=== PATIENT | female | born 2000 | race Caucasian/White ===

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

== ENCOUNTER 2021-02-15 10:03 | Inpatient (IN) | payer OTHER ==
[2021-02-15 10:44] LABS: Urine Blood Trace-intact (Negative); Urine Glucose Negative (Negative); Urine Protein Trace (Negative); Urine Specific Gravity >=1.030 (1.005-1.030)
[2021-02-15 10:56] LABS: Absolute Lymphocytes (CBC) 2.6 K/uL (0.7-4.9); Basophils % 0.5 % (0-1.3); Hematocrit 36.4 % (36.0-45.0); Lymphocytes % 20.6 % (15.3-44.8); MPV 8.4 fL (7.6-11.3); RBC Red Blood Cell Count 3.95 M/uL (3.86-4.86)
[2021-02-15 11:13] LABS: ALT/SGPT 29 U/L (12-78); AST/SGOT 20 U/L (15-37); Albumin 3.7 g/dL (3.4-5.0); Alkaline Phosphatase 69 U/L (45-117); BUN Blood Urea Nitrogen 13 mg/dL (7-18); Bicarbonate 25 mmol/L (21-32); Bilirubin Direct 0.1 mg/dL (0-0.2); Bilirubin Total 0.4 mg/dL (0.2-1.0); Glucose Level 92 mg/dL (74-106); Lipase 72 U/L (73-393); Potassium 3.9 mmol/L (3.5-5.1); Protein, Total 8.6 g/dL (6.4-8.2); Sodium Level 138 mmol/L (136-145)
--- NOTE | 2021-02-15 11:37 | RAD REPORT ---
EXAM DESCRIPTION: CTAbdomen Pelvis W Contrast - 02/15/2021 11:06 am CLINICAL HISTORY: Abdominal pain. ABD PAIN COMPARISON: [facility] Protocol dated 12/22/2019 TECHNIQUE: Biphasic CT imaging of the abdomen and pelvis was performed with 100 ml non-ionic IV cont rast. All CT scans are performed using dose optimization technique as appropriate and may include automated exposure control or mA/KV adjustment according to patient size. FINDINGS: The lung bases are clear. The liver, spleen, pancreas, adrenal glands and kidneys are within normal limits. No bowel obstruction or free intraperitoneal air is visible. Mild inflammatory changes seen the left and right pericolic gutter surrounding colon. There is modera te complex fluid in the pelvis anterior and posterior to the uterus. The appendix is noted in the rig ht lower quadrant does appear mildly thickened measuring up to 7-8 mm. Multiple prominent lymph nodes in the small bowel mesenteric. No suspicious bony findings. IMPRESSION: Findings favor inflammatory pelvic process such as pelvic inflammatory disease. A less l ikely possibility could be a perforated appendicitis although the majority of the appendix is visuali zed and appears only mildly thickened. Correlation with physical exam findings or pelvic inflammatory disease is recommended.
[2021-02-15 11:38] LABS: Urine Bacteria 20-50 /HPF (<20)
[2021-02-15 11:39] LABS: Urine Mucus S /HPF (NONE SEEN)
--- NOTE | 2021-02-15 13:24 | RAD REPORT ---
EXAM DESCRIPTION: US - Pelvis Complete - 02/15/2021 1:16 pm CLINICAL HISTORY: ABD PAIN Pelvic pain. COMPARISON: CHEST PA AND LAT 2 VIEW dated 07/07/2012; Abdomen Pelvis W Contrast dated 02/15/2021 FINDINGS: The uterus is normal in size, shape and echotexture. The uterus measures 7.8 x 5.0 x 3.5 c m. The endometrial stripe measures 4 mm, normal. Both ovaries are normal in size, shape and echotexture. The right ovary measures 2.6 x 2.2 cm. The left ovary measures 3.1 x 2.4 cm. Complex fluid is likely present adjacent to the right ovary. Normal Doppler blood flow was demonstrated to both ovaries. Mild free fluid is seen in the pelvis. IMPRESSION: Complex structure is present adjacent to the right ovary. Tubo-ovarian abscess is a poss ibility.Recommend clinical correlation. Mild free fluid is seen in the pelvis.
[2021-02-15] MEDS ORDERED: NA CHLORIDE 0.9% 100 ML ONE (14:24)
[2021-02-15] MEDS ORDERED: PIPERACIL/TAZO 3.375 GM VIAL IV ONE (14:24)
--- NOTE | 2021-02-15 14:30 | ER ---
Nurse's Notes [facility] Name: Dai Tilley Age: 21 yrs Sex: Female : 2000 Arrival Date: 02/15/2021 Time: 10:08 Bed 10 Private MD: Diagnosis: Abdominal pain, unspecified Presentation: 02/15 10:12 Chief complaint: Patient states: Lower abd pain and bloating for 6 days. Some N/V/D, no ll1 fever States she thinks she has ovarian cyst. Coronavirus screen: Vaccine status: Patient reports being unvaccinated. Client denies travel out of the [place] in the last 14 days. At this time, the client does not indicate any symptoms associated with coronavirus-19. Ebola Screen: Patient denies travel to an Ebola-affected area in the 21 days before illness onset. Initial Sepsis Screen: Does the patient meet any 2 criteria? No. Patient's initial sepsis screen is negative. Does the patient have a suspected source of infection? Yes: Acute abdominal pain. Risk Assessment: Do you want to hurt yourself or someone else? Patient reports no desire to harm self or others. Onset of symptoms was February 09, 2021. 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 Flu vaccine is up to date. - Social history:: Smoking status: Patient denies any tobacco usage or history of. Screenin:15 Abuse screen: Denies threats or abuse. Nutritional screening: No deficits noted. tw2 Tuberculosis screening: No symptoms or risk factors identified. Fall Risk None identified. Assessment: 10:30 General: Appears in no apparent distress. comfortable, Behavior is calm, cooperative. vg1 Pain: Complains of pain in right lower quadrant and left lower quadrant Pain currently is 4 out of 10 on a pain scale. Pain began about six days ago. Neuro: Level of Consciousness is awake, alert, obeys commands, Oriented to person, place, time, situation. Cardiovascular: Patient's skin is warm and dry. Respiratory: Airway is patent Respiratory effort is even, unlabored. GI: Bowel sounds present X 4 quads. Abd is soft and non tender X 4 quads. Reports diarrhea, nausea, vomiting. : No signs and/or symptoms were reported regarding the genitourinary system. EENT: No signs and/or symptoms were reported regarding the EENT system. Derm: Skin is intact, is healthy with good turgor. Musculoskeletal: Circulation, motion, and sensation intact. 11:48 Reassessment: Patient appears in no apparent distress at this time. No changes from vg1 previously documented assessment. Patient and/or family updated on plan of care and expected duration. Pain level reassessed. Patient is alert, oriented x 3, equal unlabored respirations, skin warm/dry/pink. 13:36 Reassessment: Patient appears in no apparent distress at this time. No changes from vg1 previously documented assessment. Patient and/or family updated on plan of care and expected duration. Pain level reassessed. Patient is alert, oriented x 3, equal unlabored respirations, skin warm/dry/pink. 14:29 Reassessment: Patient appears in no apparent distress at this time. No changes from vg1 previously documented assessment. Patient and/or family updated on plan of care and expected duration. Pain level reassessed. Patient is alert, oriented x 3, equal unlabored respirations, skin warm/dry/pink. 14:42 Reassessment: Dr Kelly at bedside. vg1 14:57 Reassessment: Jazmyne Obregon ENP at bedside. vg1 15:43 Reassessment: Patient appears in no apparent distress at this time. Patient and/or vg1 family updated on plan of care and expected duration. Pain level reassessed. Patient is alert, oriented x 3, equal unlabored respirations, skin warm/dry/pink. 17:00 Reassessment: Patient appears in no apparent distress at this time. No changes from vg1 previously documented assessment. Patient and/or family updated on plan of care and expected duration. Pain level reassessed. Patient is alert, oriented x 3, equal unlabored respirations, skin warm/dry/pink. 17:54 Reassessment: attempted to call report, nurse unavailable. vg1 18:00 Reassessment: Patient appears in no apparent distress at this time. No changes from vg1 previously documented assessment. Patient is alert, oriented x 3, equal unlabored respirations, skin warm/dry/pink. 18:13 Reassessment: attempted to call report. vg1 Vital Signs: 10:12 BP 115 / 78; Pulse 85; Resp 16; Temp 97.2; Pulse Ox 98% ; Weight 62.6 kg; Height 5 ft. ll1 2 in. (157.48 cm); Pain 4/10; 10:32 BP 101 / 72; Pulse 84; Resp 16; Pulse Ox 99% ; vg1 11:30 BP 98 / 77; Pulse 75; Resp 16; Pulse Ox 100% ; vg1 13:36 BP 100 / 75; Pulse 85; Resp 14; Pulse Ox 100% ; vg1 14:28 BP 107 / 74; Pulse 76; Resp 16; Temp 98.9(O); Pulse Ox 100% ; vg1 15:43 BP 99 / 78; Pulse 75; Resp 14; Pulse Ox 100% ; vg1 18:00 BP 104 / 74; Pulse 88; Resp 16; Pulse Ox 100% ; vg1 10:12 Body Mass Index 25.24 (62.60 kg, 157.48 cm) ll1 ED Course: 10:08 Patient arrived in ED. mr 10:12 Arm band placed on. ll1 10:14 Triage completed. ll1 10:15 Temo Molina NP is PHCP. pm1 10:15 Seun Lowe MD is Attending Physician. pm1 10:15 Bed in low position. Call light in reach. tw2 10:19 Chani Azevedo, RN is Primary Nurse. vg1 10:32 No provider procedures requiring assistance completed. vg1 10:35 Inserted saline lock: 22 gauge in right antecubital area, using aseptic technique. ll1 Blood collected. 10:35 COVID swab sent to lab. Flu and/or RSV swab sent to lab. vg1 11:06 CT Abd/Pelvis - IV Contrast Only In Process Unspecified. EDMS 13:16 US Pelvis Complete In Process Unspecified. EDMS 13:25 Patient moved back from ultrasound. vg1 13:36 Assist provider with pelvic exam: Set up pelvic tray. Performed by Temo Molina NP vg1 Specimens sent to lab. Patient tolerated well. 14:29 Presley Watson MD is Hospitalizing Provider. pm1 20:20 Patient admitted, IV remains in place. vg1 Administered Medications: 14:23 Drug: Zosyn (piperacillin-tazobactam) 3.375 grams Route: IVPB; Infused Over: 60 mins; vg1 Site: right antecubital; 15:31 Follow up: IV Status: Completed infusion; IV Intake: 100ml vg1 14:29 Drug: NS 0.9% 1000 ml Route: IV; Rate: 1000 ml; Site: right antecubital; vg1 15:30 Follow up: IV Status: Completed infusion; IV Intake: 1000ml vg1 Intake: 15:30 IV: 1000ml; Total: 1000ml. vg1 15:31 IV: 100ml; Total: 1100ml. vg1 Outcome: 14:30 Decision to Hospitalize by Provider. pm1 20:20 Admitted to Tele accompanied by tech, room 219, with chart, Report called to Maeve acosta RN 20:20 Condition: stable 20:20 Instructed on the need for admit. 20:21 Patient left the ED. vg1 Signatures: Dispatcher [employer] Lyndsey Garcia JesseTemo, SLAB TRIPPER SLAB TRIPPER pm1 Cici Velasco RN RN tw2 Chani Azevedo RN RN vg1 Elvis Stewart, RN RN ll1 Corrections: (The following items were deleted from the chart) 14:58 14:57 Reassessment: Madina Obregon ENP at bedside vg1 vg1
--- NOTE | 2021-02-15 14:30 | EDPHYS ---
Physician Documentation [facility] Name: Dai Tilley Age: 21 yrs Sex: Female : 2000 Arrival Date: 02/15/2021 Time: 10:08 Bed 10 Private MD: ED Physician Seun Lowe HPI: 02/15 10:47 This 21 yrs old Female presents to ER via Ambulatory with complaints of pm1 Abdominal Pain. 10:47 The patient presents with abdominal pain in the lower abdomen. Onset: The pm1 symptoms/episode began/occurred 5 day(s) ago. The symptoms do not radiate. Associated signs and symptoms: Pertinent positives: Bloating, nausea vomiting and diarrhea, Pertinent negatives: chest pain, dysuria, fever, shortness of breath. The symptoms are described as crampy. Modifying factors: The symptoms are alleviated by nothing, the symptoms are aggravated by nothing. Severity of pain: in the emergency department the pain is unchanged. The patient has not experienced similar symptoms in the past. The patient has been recently seen by a physician: the patient's primary care provider, yesterday, with similar presenting complaints, and was referred to a specialist, For examination by roll dough divider, however next available appointment in April. NETWORKER: 10:16 LMP N/A - tw2 Historical: - Allergies: 10:11 No Known Allergies; ll1 - PMHx: 10:11 depressive disorder; ll1 - PSHx: 10:11 ear tubes; Tonsillectomy; ll1 - Immunization history:: Adult Immunizations up to date, Client reports having NOT received the Covid vaccine. Flu vaccine is up to date. - Social history:: Smoking status: Patient denies any tobacco usage or history of. ROS: 10:47 Constitutional: Negative for fever, chills, and weight loss, Cardiovascular: Negative pm1 for chest pain, palpitations, and edema, Respiratory: Negative for shortness of breath, cough, wheezing, and pleuritic chest pain. 10:47 Back: Negative for injury and pain, : Negative for injury, bleeding, discharge, and swelling, MS/Extremity: Negative for injury and deformity, Skin: Negative for injury, rash, and discoloration. 10:47 Neuro: Negative for headache, weakness, numbness, tingling, and seizure. 10:47 Abdomen/GI: Positive for abdominal pain, nausea, vomiting, and diarrhea. 10:47 All other systems are negative. Exam: 10:47 Constitutional: This is a well developed, well nourished patient who is awake, alert, pm1 and in no acute distress. Head/Face: Normocephalic, atraumatic. 10:47 Back: No spinal tenderness. No costovertebral tenderness. Full range of motion. Skin: Warm, dry with normal turgor. Normal color with no rashes, no lesions, and no evidence of cellulitis. MS/ Extremity: Pulses equal, no cyanosis. Neurovascular intact. Full, normal range of motion. 10:47 Cardiovascular: Exam negative for acute changes, Rate: normal, Rhythm: regular, Pulses: no pulse deficits are appreciated. 10:47 Respiratory: Exam negative for acute changes, respiratory distress, shortness of breath, Breath sounds: are clear throughout. 10:47 Abdomen/GI: Inspection: abdomen appears normal, Palpation: soft, in all quadrants, moderate abdominal tenderness, in the suprapubic area. 10:47 Neuro: Exam negative for acute changes, Orientation: is normal, Mentation: is normal, Motor: is normal, moves all fours. 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 Sexual behavior: the patient is sexually active, and reports a single partner. Vital Signs: 10:12 BP 115 / 78; Pulse 85; Resp 16; Temp 97.2; Pulse Ox 98% ; Weight 62.6 kg; Height 5 ft. ll1 2 in. (157.48 cm); Pain 4/10; 10:32 BP 101 / 72; Pulse 84; Resp 16; Pulse Ox 99% ; vg1 11:30 BP 98 / 77; Pulse 75; Resp 16; Pulse Ox 100% ; vg1 13:36 BP 100 / 75; Pulse 85; Resp 14; Pulse Ox 100% ; vg1 14:28 BP 107 / 74; Pulse 76; Resp 16; Temp 98.9(O); Pulse Ox 100% ; vg1 15:43 BP 99 / 78; Pulse 75; Resp 14; Pulse Ox 100% ; vg1 18:00 BP 104 / 74; Pulse 88; Resp 16; Pulse Ox 100% ; vg1 10:12 Body Mass Index 25.24 (62.60 kg, 157.48 cm) ll1 MDM: 10:15 Patient medically screened. pm1 10:50 Data reviewed: vital signs. Data interpreted: Pulse oximetry: on room air is 99 %. pm1 Interpretation: normal. 13:54 Counseling: I had a detailed discussion with the patient and/or guardian regarding: the pm1 historical points, exam findings, and any diagnostic results supporting the discharge/admit diagnosis, lab results, radiology results, the need for further work-up and treatment in the hospital. 14:04 ED course: Phone call to Dr. Young. Left message. I called L\T\D to find his secondary pm1 number and informed that he will be doing loud yard work and maybe unavailable by phone and to continue calling him. Also informed by L\T\D that if it is an emergency, he said to call the police so that they can find him. 14:06 Physician consultation: Carl Kelly MD regarding consult, patient's condition, and will pm1 see patient would like consultation with Dr. Sharif Young, Admit to the hospitalist, tomorrow CT p.o. and IV contrast, and will come and evaluate the patient today. 15:05 ED course: 4th phone call to Dr. Tran. No answer. pm1 15:10 Physician consultation: Sharif Young MD regarding consult, patient's condition, and pm1 will see patient tomorrow. 02/15 10:24 Order name: Basic Metabolic Panel; Complete Time: 11:50 pm1 02/15 10:24 Order name: CBC with Diff; Complete Time: 11:50 pm1 02/15 10:24 Order name: Hepatic Function; Complete Time: 11:50 pm1 02/15 10:24 Order name: Lipase; Complete Time: 11:50 pm1 02/15 10:24 Order name: Flu; Complete Time: 12:43 pm1 02/15 10:44 Order name: Urine Dipstick-Ancillary; Complete Time: 10:50 EDMS 02/15 10:47 Order name: Urine Microscopic Only eb 02/15 10:47 Order name: Urine Microscopic Only; Complete Time: 11:50 EDMS 02/15 10:48 Order name: Urine --Ancillary (enter results) eb 02/15 10:48 Order name: Urine --Ancillary; Complete Time: 10:56 EDMS 02/15 11:31 Order name: SARS-COV-2 RT PCR; Complete Time: 12:30 EDMS 02/15 11:40 Order name: Urine Culture EDMS 02/15 12:12 Order name: Wet Prep; Complete Time: 16:07 pm1 02/15 10:24 Order name: IV Saline Lock; Complete Time: 10:39 pm1 02/15 10:24 Order name: Labs collected and sent; Complete Time: 10:39 pm1 02/15 10:24 Order name: Urine Dipstick-Ancillary (obtain specimen); Complete Time: 10:48 pm1 02/15 10:24 Order name: Urine Test (obtain specimen); Complete Time: 10:48 pm1 02/15 10:24 Order name: CT Abd/Pelvis - IV Contrast Only; Complete Time: 11:50 pm1 02/15 12:06 Order name: US Pelvis Complete; Complete Time: 13:33 pm1 02/15 12:12 Order name: Pelvic Exam Setup; Complete Time: 12:30 pm1 02/15 12:12 Order name: GC (GONORR/CHLAMYDIA) Probe pm1 02/15 14:22 Order name: NPO; Complete Time: 14:23 pm1 Administered Medications: 14:23 Drug: Zosyn (piperacillin-tazobactam) 3.375 grams Route: IVPB; Infused Over: 60 mins; vg1 Site: right antecubital; 15:31 Follow up: IV Status: Completed infusion; IV Intake: 100ml vg1 14:29 Drug: NS 0.9% 1000 ml Route: IV; Rate: 1000 ml; Site: right antecubital; vg1 15:30 Follow up: IV Status: Completed infusion; IV Intake: 1000ml vg1 Disposition: 02/16 07:03 Co-signature as Attending Physician, Seun Lowe MD I agree with the assessment and rn plan of care. Attestation: The patient's history, exam findings, diagnostics, and a summary of any interventions or procedures was reviewed in detail with Temo Molina NP. Disposition Summary: 02/15/21 14:30 Hospitalization Ordered Hospitalization Status: Inpatient Admission pm1 Provider: Presley Watson pm1 Location: Telemetry/MedSurg (Inpatient) pm1 Condition: Stable pm1 Problem: new pm1 Symptoms: have improved pm1 Bed/Room Type: Standard pm1 Room Assignment: 219(02/15/21 17:33) eb Diagnosis - Abdominal pain, unspecified pm1 Forms: - Medication Reconciliation Form pm1 - SBAR form pm1 Signatures: Dispatcher [employer] EDMS Seun Lowe MD MD rn Temo Molina NP NATIONAL STORMWATER LEADER pm1 Radha Kolb Victoria RN RN vg1 Elvis Stewart RN RN ll1 Corrections: (The following items were deleted from the chart) 02/15 11:31 10:25 CORONAVIRUS+MR.LAB.BRZ ordered. EDLA EDMS 17:33 14:30 pm1 eb
[2021-02-15] MEDS ORDERED: NA CHLORIDE 0.9% 1,000 ML ONE (14:50)
--- NOTE | 2021-02-15 18:15 | P.HP ---
Certification for Inpatient Patient admitted to: Inpatient With expected LOS: >2 Midnights Patient will require the following post-hospital care: None Practitioner: I am a practitioner with admitting privileges, knowledge of patient current condition, hospital course, and medical plan of care. Services: Services provided to patient in accordance with Admission requirements found in Title 42 Section 412.3 of the Code of Federal Regulations <Sabas Samano - Last Filed: 02/15/21 18:09> Patient History Date of Service: 02/15/21 Primary Care Provider: none Reason for admission: RLQ abdominal pain History of Present Illness: CTAbdomen Pelvis W Contrast - 02/15/2021 11:06 am CLINICAL HISTORY: Abdominal pain. ABD PAIN COMPARISON: Stone Protocol dated 12/22/2019 FINDINGS: The lung bases are clear. The liver, spleen, pancreas, adrenal glands and kidneys are within normal limits. No bowel obstruction or free intraperitoneal air is visible. Mild inflammatory changes seen the left and right pericolic gutter surrounding colon. There is moderate complex fluid in the pelvis anterior and posterior to the uterus. The appendix is noted in the right lower quadrant does appear mildly thickened measuring up to 7-8 mm. Multiple prominent lymph nodes in the small bowel mesenteric. No suspicious bony findings. IMPRESSION: Findings favor inflammatory pelvic process such as pelvic inflammatory disease. A less likely possibility could be a perforated appendicitis although the majority of the appendix is visualized and appears only mildly thickened. Correlation with physical exam findings or pelvic inflammatory disease is recommended. : US - Pelvis Complete - 02/15/2021 1:16 pm CLINICAL HISTORY: ABD PAIN Pelvic pain. COMPARISON: CHEST PA AND LAT 2 VIEW dated 07/07/2012; Abdomen Pelvis W Contrast dated 02/15/2021 FINDINGS: The uterus is normal in size, shape and echotexture. The uterus measures 7.8 x 5.0 x 3.5 cm. The endometrial stripe measures 4 mm, normal. Both ovaries are normal in size, shape and echotexture. The right ovary measures 2.6 x 2.2 cm. The left ovary measures 3.1 x 2.4 cm. Complex fluid is likely present adjacent to the right ovary. Normal Doppler blood flow was demonstrated to both ovaries. Mild free fluid is seen in the pelvis. IMPRESSION: Complex structure is present adjacent to the right ovary. Tubo- ovarian abscess is a possibility. Recommend clinical correlation. Mild free fluid is seen in the pelvis. Patient's labs are generally unremarkable the white blood count is 12.5. Urinalysis indicates UTI. Patient notes that she had 5 days of abdominal cramping and bloating with discomfort over the suprapubic area she denies any fever or chills, however she has had some loose stool for about a week. She came to the ER because of her abdominal discomfort. She is seeing the surgeon and will be reevaluated in the morning if her symptoms continue she will be getting a CT with oral contrast and IV contrast. Home medications list reviewed: No - Past Medical/Surgical History Diabetic: No -: Primary Ciliary Dyskinesia -: Lung biopsy -: Nasal surgery Psychosocial/ Personal History: Employed, lives at home with family - Social History Smoking Status: Never smoker Alcohol use: No CD- Drugs: No Caffeine use: Yes Place of Residence: Home <Sabas Samano - Last Filed: 02/15/21 18:09> Date of Service: 02/15/21 <Presley Watson - Last Filed: 02/17/21 03:19> Allergies No Known Allergies Allergy (Unverified 02/15/21 20:51) Home Medications: Escitalopram Oxalate [Lexapro] 20 mg PO DAILY 02/15/21 Review of Systems 10-point ROS is otherwise unremarkable General: Other (Occasional headaches located at back of scalp and neck) Eyes: Unremarkable ENT: Unremarkable Respiratory: Unremarkable Cardiovascular: Unremarkable Gastrointestinal: Nausea, Vomiting, Abdominal Pain, Diarrhea Genitourinary: Unremarkable Musculoskeletal: Unremarkable Integumentary: Unremarkable Neurological: Unremarkable Lymphatics: Unremarkable <Sabas Samano - Last Filed: 02/15/21 18:09> 10-point ROS is otherwise unremarkable <Presley Watson - Last Filed: 02/17/21 03:19> Physical Examination - Physical Exam General: Alert, In no apparent distress, Oriented x3 HEENT: Atraumatic, Normocephalic, PERRLA Neck: Supple, 2+ carotid pulse no bruit, JVD not distended Respiratory: Clear to auscultation bilaterally, Normal air movement, Diminished Cardiovascular: No edema, Normal pulses, Regular rate/rhythm Capillary refill: <2 Seconds Gastrointestinal: No ascites, No masses, Tenderness (Right lower quadrant and over suprapubic region. ) Musculoskeletal: No clubbing, No swelling, No contractures Integumentary: No rashes, No breakdown Neurological: Normal gait, Normal speech, Normal strength at 5/5 x4 extr External genitalia: Deferred Rectal: Deferred - Studies Laboratory Data (last 24 hrs) 02/15/21 10:35: WBC 12.50 H, Hgb 12.1, Hct 36.4, Plt Count 351 02/15/21 10:35: Sodium 138, Potassium 3.9, BUN 13, Creatinine 0.65, Glucose 92, Total Bilirubin 0.4, AST 20, ALT 29, Alkaline Phosphatase 69, Lipase 72 L Microbiology Data (last 24 hrs): 02/15/21 13:32 Cervical Wet Prep - Final 02/15/21 10:24 Nasopharnyx Influenza Type A Antigen Screen - Final 02/15/21 10:24 Nasopharnyx Influenza Type B Antigen Screen - Final <Sabas Samano - Last Filed: 02/15/21 18:09> Assessment and Plan - Plan Assessment: Abdominal pain RLQ UTI Plan: Abdominal pain RLQ: Zosyn, IV fluids. CT abdomen and pelvis with IV Contrast and 2 hour delay, NPO after midnight. 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 UTI: Zoysn DVT PPx: Held due to possible surgery CODE STATUS: Full Code. Discharge Plan: Home Plan to discharge in: 48 Hours - Advance Directives Does patient have a Living Will: No Does patient have a Durable POA for Healthcare: No - Code Status/Comfort Care Code Status Assessed: Yes Code Status: Full Code Critical Care: No Time Spent Managing Pts Care (In Minutes): 70 <Sabas Samano - Last Filed: 02/15/21 18:09> - Problems (Diagnosis) (1) Pelvic inflammatory disease (PID) Current Visit: Yes Status: Acute <Presley Watson - Last Filed: 02/17/21 03:19> Date of Service: 02/15/21 Subjective: Continue plan of care as mentioned above in HPI Physical Examination: Vitals: Afebrile vital signs are stable Physical exam: Cardiovascular: Within normal limits. Lungs: Within normal limits Abdomen: Within normal limits Neuro: Awake, alert, oriented to person place and time Assessment: 1. Pelvic inflammatory disease Plan: 1. Continue with IV hydration 2. Continue with IV antibiotics 3. Continue with pain control 4. NPO 5. GI consultation; outpatient follow with gynecology 6. Serial H&H, and we will monitor CBC, BMP, LFTs and lipase along with electrolytes. 7. GI and DVT prophylaxis <Presley Watson - Last Filed: 02/17/21 03:19>
[2021-02-15 20:47] VITALS: O2SAT 100
[2021-02-15] MEDS ORDERED: PIPER TAZO 3.375 GM in NA CHLORIDE 0.9% 100 ML IV SCH (20:52)
[2021-02-15 21:24] VITALS: BMI 25.2
[2021-02-15] MEDS: NA CHLORIDE 0.9% 1,000 ML IV SCH (21:50)
[2021-02-15] MEDS: PIPER TAZO 3.375 GM in NA CHLORIDE 0.9% 100 ML IV SCH (21:51)
[2021-02-16] MEDS ORDERED: MORPHINE 4 MG/ML SYR IV PRN (00:25)
[2021-02-16] MEDS ORDERED: MORPHINE 2 MG/ML SYR IV PRN (04:00)
[2021-02-16] MEDS ORDERED: NA CHLORIDE 0.9% 1,000 ML IV ONE (05:27)
[2021-02-16 06:11] LABS: Absolute Lymphocytes (CBC) 3.4 K/uL (0.7-4.9); Basophils % 1.2 % (0-1.3); Hematocrit 35.7 % (36.0-45.0); Lymphocytes % 33.5 % (15.3-44.8); MPV 8.6 fL (7.6-11.3); RBC Red Blood Cell Count 3.85 M/uL (3.86-4.86)
[2021-02-16 06:24] LABS: ALT/SGPT 24 U/L (12-78); AST/SGOT 16 U/L (15-37); Albumin 3.2 g/dL (3.4-5.0); Alkaline Phosphatase 63 U/L (45-117); BUN Blood Urea Nitrogen 10 mg/dL (7-18); Bicarbonate 25 mmol/L (21-32); Bilirubin Total 0.5 mg/dL (0.2-1.0); Glucose Level 101 mg/dL (74-106); Protein, Total 7.6 g/dL (6.4-8.2); Sodium Level 140 mmol/L (136-145)
[2021-02-16] MEDS: NA CHLORIDE 0.9% 1,000 ML IV SCH ×2 (07:08→20:51)
[2021-02-16] MEDS: PIPER TAZO 3.375 GM in NA CHLORIDE 0.9% 100 ML IV SCH ×4 (07:09→20:52)
--- NOTE | 2021-02-16 08:50 | CON ---
History: A 21-year-old female complained of 5-6 days of nausea, decreased appetite, just general mal aise and abdominal pain. The patient has never had a history of STDs. Has no history of GI problems such as ulcerative colitis or Crohn's. Had not had much of an appetite for which she came in. Eval uation thus far including CAT scans and ultrasound demonstrate a right-sided problem. The ovaries ap pear to be normal. The uterus is normal. test is negative. White count was only 12,000, has decreased. The patient says that she is moderately better, but not completely better. She is on antibiotics at this point. She has more imaging scheduled for this morning. Right now, the possibi lity of unilateral tubo-ovarian abscess I think is quite unlikely, seen that with IUDs, but with a yo lb person if she had chlamydia gonorrhea, which I doubt, it would probably be a bilateral process. Right now, I think some sort of inflammatory situation involving the appendix is probably still the m ost likely thing. She knows that if she does not improve diagnostic laparoscopy, Dr. Kelly will pr obably be involved. If you want me from a consulting standpoint, I would be on standby, but right no w I would continue with the antibiotics as she does not appear to be in any kind of acute distress an d I would give the antibiotics longer to work if there was something wrong with the patient's right t ube that was involved with this process, I think Dr. Duran need to be consulted as she is the expe rt laparoscopist from a gynecologic standpoint here in town and I think her help would be more approp riate if the patient is taken to surgery. JOSE EDUARDO/BO Voice ID: [id number] Report ID: [id number]
[2021-02-16] MEDS: ONDANSETRON 4 MG/2 ML VIAL IV PRN (09:06)
--- NOTE | 2021-02-16 11:38 | RAD REPORT ---
EXAM DESCRIPTION: CT - Abdomen Pelvis W Contrast - 02/16/2021 10:20 am CLINICAL HISTORY: Abdominal pain COMPARISON: Abdomen Pelvis W Contrast dated 02/15/2021; Pelvis Complete dated 02/15/2021 TECHNIQUE: Biphasic, helical CT imaging of the abdomen and pelvis was performed following 100 ml non -ionic IV contrast. Oral contrast was given. All CT scans are performed using dose optimization technique as appropriate and may include automated exposure control or mA/KV adjustment according to patient size. FINDINGS: No suspicious findings in the lung bases. The liver, spleen, and pancreas show no suspicious findings. Gallbladder and biliary tree are also wi thout suspicious finding. Symmetric renal function is seen with no hydronephrosis or suspicious renal mass. No pyelonephritis o r acute parenchymal process. Contracted urinary bladder shows no suspicious finding. No adrenal abnor malities. No gastric dilatation or wall thickening. Small bowel loops are not dilated. There are several small bowel loops in the pelvis that show a mild wall thickening and edema. There is moderate wall thickeni ng involving the terminal ileum. Small mesenteric lymph nodes are present. There is a mild wall thick ening with adjacent stranding in the sigmoid colon. The proximal and midportion of the appendix is no rmal in diameter with oral CT contrast present within the lumen. Distal appendix appears to be dilate d where it abuts the ovary in fallopian tube. There is no immediate edematous/inflammatory stranding around this portion of the appendix. No acute uterine finding seen. Patient has prominent nabothian cyst or possible Bartholin's cyst olivia g the right-side vaginal wall similar to comparison. A 16 millimeter left ovarian cyst is identified. Left fallopian tube appears prominent. Tortuous tubular structure in the right adnexa believed to be enlarged fallopian tube as well. No free air or pneumatosis. Mild congested appearance to the mesenteric fat along with small mesente hina lymph nodes. No hernia, mass or bulky lymphadenopathy. No suspicious bony findings. IMPRESSION: CT findings continue to favor pelvic inflammatory disease or similar pelvic inflammatory process as the most likely etiology. The distal appendix is enlarged were it abuts the ovary and fallopian tube. However, there is no imme diate inflammatory stranding around this enlarged portion of the appendix and there is oral CT contra st in the proximal half of the appendix. Appendicitis as a primary etiology is felt to be lower in l ikelihood. Colon and small bowel circumferential wall thickening and edema changes are favored to be secondary r esponse to inflammatory pelvic process rather than inflammatory bowel disease.
--- NOTE | 2021-02-16 12:31 | P.PN ---
Subjective Date of Service: 02/16/21 Primary Care Provider: none Chief Complaint: RLQ abdominal pain Subjective: No new changes (continues to have lower abdominal pain, diarrhea, no other acute events) Physical Examination - Vital Signs Temperature: 98.2 F Blood Pressure: 94/62 Pulse: 82 Respirations: 14 Pulse Ox (%): 100 - Physical Exam General: Alert, In no apparent distress, Cooperative Respiratory: Clear to auscultation bilaterally, Normal air movement Cardiovascular: Regular rate/rhythm Gastrointestinal: Other (soft, mild suprapubic and RLQ TTP, ND, no rebound, no peritoneal signs) - Studies Microbiology Data (last 24 hrs): 02/15/21 13:32 Cervical Wet Prep - Final 02/15/21 10:24 Nasopharnyx Influenza Type A Antigen Screen - Final 02/15/21 10:24 Nasopharnyx Influenza Type B Antigen Screen - Final Assessment And Plan - Current Problems (Diagnosis) (1) Pelvic inflammation in female Current Visit: Yes Status: Acute Plan: - Repeat CT did not appear to be appendicitis - continue antibiotics - Plan per primary and Dr. Young, if patient is taken to OR for laparoscopy, I will be available for appendectomy
[2021-02-16] MEDS: HYDROCODONE/APAP 5/325 MG TAB PO PRN ×2 (14:35→20:52)
--- NOTE | 2021-02-16 16:29 | CON ---
Date of Consultation: 02/15/2021 Brief History Of Present Illness: The patient is a 21-year-old female, who presents to the hospital approximately 5-day history of worsening abdominal pain in the right lower quadrant. She states this felt like menstrual cramps, but got significantly worse and is not associated with her normal menstr ual cycle. However, her menstrual cycle is quite abnormal. She states the pain has gotten significa ntly worse and associated with bloating, distention, and suprapubic tenderness. The pain seems to ra diate to the suprapubic area. She thought that this was possibly related to urinary tract infection as she has a frequent history of those as well as in the past. She is sexually active; however, she noted that she had some loose stool for approximately 1 week prior to her coming to the emergency tania m, but did not have watery diarrhea. No blood in her stool, so she ultimately came to the emergency room with the above-stated complaints. She has had some low-grade fever. No chills. No nausea. No vomiting. No obstructive complaints. She has never had similar episodes before in the past. She c annot recall the first day of her last period. Past Medical History: Significant for primary ciliary dyskinesia. Past Surgical History: Includes lung biopsy, nasal surgery all related to her primary ciliary dyskin esia. Social History: She is employed. Lives at home with her family. She denies smoking, alcohol, or re creational drug use. She is sexually active. Review of Systems: Ten-point review of systems other than HPI denies. Physical Examination: Vital Signs: At the time of my examination; her blood pressure was 104/74, pulse is 88, respiratory rate 16, and temperature 98.9. General: She is awake, alert, and oriented. Psychiatric: She is appropriate and conversive. HEENT: She is normocephalic. Sclerae anicteric. Mucous membranes were moist. Oropharynx is clear. Neck: Supple without JVD. Chest: Normal expansion and excursion. Cardiovascular: Regular rate and rhythm. Pulmonary: Clear to auscultation bilaterally. Abdomen: Soft with mild right lower quadrant and suprapubic tenderness to palpation. No rebound. N o guarding. No focal peritoneal signs. No surgical scars evident. Pelvis is stable. Extremities: No clubbing, cyanosis, or edema. Skin: Warm and dry. Laboratory Data: Revealed a white blood count of 12.5, hemoglobin is 12.1, hematocrit of 36.4, plate let count was 351, and neutrophils 67%. Her sodium is 138, potassium 3.9, chloride 109, carbon dioxi de 25, BUN 13, creatinine 0.6, glucose is 92, total bilirubin 0.4, direct component 0.1, AST 20, ALT 29, alkaline phosphatase is 69, and lipase is 72. Her urinalysis showed trace ketones, trace blood, 1+ leukocyte esterase, 5 to 10 red blood cells, 20 to 50 white blood cells, 20 to 50 bacteria and tra ce protein. Urine test was negative. COVID test was negative. She had imaging performed, which included a CT scan of the abdomen and pelvis, which was officially read as findings favor infl ammatory pelvic process such as pelvic inflammatory disease. The less likely possibility could be pe rforated appendicitis, although the majority of the appendix is visualized and appears only mildly th ickened. Correlation with physical exam findings or pelvic inflammatory disease recommended. She ad ditionally had an ultrasound of the pelvis, which officially read as complex structures present adjac ent to the right ovary. Tubo-ovarian abscess is a possibility. Recommend clinical correlation. Mil d free fluid is seen in the pelvis. Assessment And Plan: This is a 21-year-old female, who comes in with fluid in her pelvis and pain po ssibly a gynecologic process versus an appendicitis. Because of the suboptimal imaging performed, I will recommend a p.o. contrast with a 2-hour delay CT scan to better visualize the appendix to rule t his out as a possibility if she has appendicitis. I have explained the risks, benefits, and alternat siomara of laparoscopic possible open appendectomy including, but not limited to bleeding, infection, da mage to the surrounding tissue, need further operation and procedures however, she has a gynecologic process. I will defer to the internet project manager, Dr. Young has been consulted to see the patient. We will await his consultation and recommendations. However, I do recommend antibiotic coverage at this poi nt for gynecologic processes as I think there is a lower likelihood of her having appendicitis given the clinical picture, but we will follow along until followup CT helps hopefully determine the etiolo gy of her process. I have explained risks, benefits, alternatives of the above stated plan. The pat ient agrees to proceed as indicated. Thank you for this interesting consult. YESENIA/BO Voice ID: [id number] Report ID: [id number]
[2021-02-17] MEDS: NA CHLORIDE 0.9% 1,000 ML IV SCH (02:52)
--- NOTE | 2021-02-17 03:05 | P.PN ---
Subjective Date of Service: 02/16/21 Spoke with General surgery and after repeat CT scan patient most likely does not have appendicitis. Spoke with Ob and patient is stable for discharge once medically stabilized. Patient is still having a significant degree a pain so we will continue with IV antibiotic therapy. Patient is going to follow with General surgery and Dr. Duran. She wants to follow with patient on Wednesday or Wednesday at the clinic. Patient can discharge on Augmentin and Flagyl per their recommendation. Continue with outpatient follow-up once patient is stabilized. Review of Systems 10-point ROS is otherwise unremarkable Physical Examination - Vital Signs Temperature: 97.8 F Blood Pressure: 92/72 Pulse: 70 Respirations: 15 Pulse Ox (%): 96 - Physical Exam General: Alert, In no apparent distress, Oriented x3 Respiratory: Clear to auscultation bilaterally, Normal air movement Cardiovascular: Regular rate/rhythm, Normal S1 S2 Gastrointestinal: Normal bowel sounds, Soft and benign, Non-distended, No rebound, No guarding, Tenderness Musculoskeletal: No clubbing, No swelling, No tenderness Neurological: Normal strength at 5/5 x4 extr, Sensation intact, Cranial nerves 3-12 intact - Studies Medications List Reviewed: Yes Assessment & Plan - Problems (Diagnosis) (1) Pelvic inflammatory disease (PID) Current Visit: Yes Status: Acute - Plan 1. Continue with IV hydration 2. Continue with IV antibiotics-continue Zosyn and we will switch to Augmentin and Flagyl at discharge for clinical services director recommendation 3. Continue with pain control 4. Advanced diet as tolerated 5. Outpatient General surgery and gynecologic follow-up 6. Monitor labs closely 7. GI and DVT prophylaxis Discharge Plan: Home Plan to discharge in: Greater than 2 days - Advance Directives Does patient have a Living Will: No Does patient have a Durable POA for Healthcare: No - Code Status/Comfort Care Code Status: Full Code Critical Care: No Time Spent Managing PTS Care (In Minutes): 35
[2021-02-17] MEDS: PIPER TAZO 3.375 GM in NA CHLORIDE 0.9% 100 ML IV SCH (05:42)
[2021-02-17 05:45] LABS: Absolute Lymphocytes (CBC) 3.3 K/uL (0.7-4.9); Basophils % 1.2 % (0-1.3); Hematocrit 32.5 % (36.0-45.0); Lymphocytes % 33.6 % (15.3-44.8); RBC Red Blood Cell Count 3.49 M/uL (3.86-4.86)
[2021-02-17 06:16] LABS: ALT/SGPT 30 U/L (12-78); AST/SGOT 22 U/L (15-37); Alkaline Phosphatase 53 U/L (45-117); BUN Blood Urea Nitrogen 7 mg/dL (7-18); Bicarbonate 25 mmol/L (21-32); Bilirubin Total 0.2 mg/dL (0.2-1.0); Glucose Level 94 mg/dL (74-106); Potassium 4.2 mmol/L (3.5-5.1); Protein, Total 7.1 g/dL (6.4-8.2); Sodium Level 141 mmol/L (136-145)
[2021-02-17] MEDS ORDERED: ESCITALOPRAM 20 MG TAB PO SCH (09:00)
[2021-02-17] MEDS: HYDROCODONE/APAP 5/325 MG TAB PO PRN (09:18)
--- NOTE | 2021-02-17 09:57 | P.DS ---
Admission Date: 02/15/21 Discharge Date: 02/17/21 Primary Care Provider: none Disposition: ROUTINE DISCHARGE Discharge Condition: GOOD Reason for Admission: RLQ abdominal pain Consultations: Surgery-Dr. Kelly Link Wire Fabric Machine Operator-Dr. Dr. Young Procedures: COVID: Negative CT scan: COMPARISON: [facility] Protocol dated 12/22/2019 FINDINGS: The lung bases are clear. The liver, spleen, pancreas, adrenal glands and kidneys are within normal limits. No bowel obstruction or free intraperitoneal air is visible. Mild inflammatory changes seen the left and right pericolic gutter surrounding colon. There is moderate complex fluid in the pelvis anterior and posterior to the uterus. The appendix is noted in the right lower quadrant does appear mildly thickened measuring up to 7-8 mm. Multiple prominent lymph nodes in the small bowel mesenteric. No suspicious bony findings. IMPRESSION: Findings favor inflammatory pelvic process such as pelvic i nflammatory disease. A less likely possibility could be a perforated appendicitis although the majority of the appendix is visualized and appears only mildly thickened. Correlation with physical exam findings or pelvic inflammatory disease is recommended. ABUS: COMPARISON: CHEST PA AND LAT 2 VIEW dated 07/07/2012; Abdomen Pelvis W Contrast dated 02/15/2021 FINDINGS: The uterus is normal in size, shape and echotexture. The uterus measures 7.8 x 5.0 x 3.5 cm. The endometrial stripe measures 4 mm, normal. Both ovaries are normal in size, shape and echotexture. The right ovary measures 2.6 x 2.2 cm. The left ovary measures 3.1 x 2.4 cm. Complex fluid is likely present adjacent to the right ovary. Normal Doppler blood flow was demonstrated to both ovaries. Mild free fluid is seen in the pelvis. IMPRESSION: Complex structure is present adjacent to the right ovary. Tubo- ovarian abscess is a possibility. Recommend clinical correlation. Mild free fluid is seen in the pelvis. Follow up CT scan: COMPARISON: Abdomen Pelvis W Contrast dated 02/15/2021; Pelvis Complete dated 02/15/2021 TECHNIQUE: Biphasic, helical CT imaging of the abdomen and pelvis was performed following 100 ml non-ionic IV contrast. Oral contrast was given. All CT scans are performed using dose optimization technique as appropriate and may include automated exposure control or mA/KV adjustment according to patient size. FINDINGS: No suspicious findings in the lung bases. The liver, spleen, and pancreas show no suspicious findings. Gallbladder and biliary tree are also without suspicious finding. Symmetric renal function is seen with no hydronephrosis or suspicious renal mass. No pyelonephritis or acute parenchymal process. Contracted urinary bladder shows no suspicious finding. No adrenal abnormalities. No gastric dilatation or wall thickening. Small bowel loops are not dilated. There are several small bowel loops in the pelvis that show a mild wall thickening and edema. There is moderate wall thickening involving the terminal ileum. Small mesenteric lymph nodes are present. There is a mild wall thickening with adjacent stranding in the sigmoid colon. The proximal and midportion of the appendix is normal in diameter with oral CT contrast present within the lumen. Distal appendix appears to be dilated where it abuts the ovary in fallopian tube. There is no immediate edematous/inflammatory stranding around this portion of the appendix. No acute uterine finding seen. Patient has prominent nabothian cyst or possible Bartholin's cyst along the right-side vaginal wall similar to comparison. A 16 millimeter left ovarian cyst is identified. Left fallopian tube appears prominent. Tortuous tubular structure in the right adnexa believed to be enlarged fallopian tube as well. No free air or pneumatosis. Mild congested appearance to the mesenteric fat along with small mesenteric lymph nodes. No hernia, mass or bulky lymp hadenopathy. No suspicious bony findings. IMPRESSION: CT findings continue to favor pelvic inflammatory disease or similar pelvic inflammatory process as the most likely etiology. The distal appendix is enlarged were it abuts the ovary and fallopian tube. However, there is no immediate inflammatory stranding around this enlarged portion of the appendix and there is oral CT contrast in the proximal half of the appendix. Appendicitis as a primary etiology is felt to be lower in likelihood. Colon and small bowel circumferential wall thickening and edema changes are favored to be secondary response to inflammatory pelvic process rather than inflammatory bowel disease. Medical Problem List: Abdominal pain secondary to complex structure to the right ovary suspect pelvic inflammatory process Depression with anxiety Brief History of Present Illness: 21-year-old female presented with 5 days of abdominal bloating and cramping. She had discomfort to the suprapubic region. She denies any fever, chills. She has had poor appetite. Patient has never had history of STDs. No significant history of GI related problems such as Crohn's or ulcerative colitis. CT scan demonstrated inflammation to the right lower quadrant. Patient admitted for treatment. Hospital Course: Patient presented with abdominal pain. CT scan revealed complex structure to the right ovary. Repeat CT scan favored pelvic inflammatory process. Patient was seen and evaluated by gynecology along with surgery. Surgical intervention was ruled out. No evidence of appendicitis. Colon and small bowel circumferential wall thickening noted likely from inflammatory pelvic process. Patient received IV antibiotic therapy with improvement. At discharge she is without significant abdominal pain, nausea and vomiting. Patient without history of STD in the past. Urine culture shows mixed juliet. GC chlamydia pending at discharge. Case discussed in length with gynecologyDr. Duran. Prior to discharge Rocephin 1 g IV and Zithromax 1 g p.o. given. At discharge the patient will continue with Levaquin 500 mg daily and Flagyl 500 mg 3 times a day for 14 days. At discharge will recommend to continue probiotic 1 pill 3 times a day. Education on pelvic inflammatory disease provided. Patient will follow up with gynecology this week either or Wednesday. Gynecology will follow up on GC chlamydia results. Patient will be further evaluated at that time. Patient with underlying depression with anxiety. At discharge she will continue with her medication Lexapro 20 mg daily. Vital Signs/Physical Exam: Temp Pulse Resp BP Pulse Ox 97.5 F 76 16 92/60 98 02/17/21 04:00 02/17/21 04:00 02/17/21 09:18 02/17/21 04:00 02/17/21 09:18 General: Alert, In no apparent distress, Oriented x3, Cooperative HEENT: Atraumatic Neck: Supple Respiratory: Clear to auscultation bilaterally, Normal air movement Cardiovascular: Normal pulses, Regular rate/rhythm Gastrointestinal: Normal bowel sounds, No ascites, No masses, No rebound, Other (No significant abdominal pain) Musculoskeletal: No tenderness, No warmth Integumentary: No tenderness/swelling Neurological: Normal speech, Normal strength at 5/5 x4 extr, Normal tone Laboratory Data at Discharge: WBC 9.90 K/uL (4.3-10.9) 02/17/21 05:03 Hgb 10.8 g/dL (12.0-15.0) L 02/17/21 05:03 Hct 32.5 % (36.0-45.0) L 02/17/21 05:03 Plt Count 297 K/uL (152-406) 02/17/21 05:03 Sodium 141 mmol/L (136-145) 02/17/21 05:03 Potassium 4.2 mmol/L (3.5-5.1) 02/17/21 05:03 BUN 7 mg/dL (7-18) 02/17/21 05:03 Creatinine 0.67 mg/dL (0.55-1.3) 02/17/21 05:03 Glucose 94 mg/dL (74-106) 02/17/21 05:03 Total Bilirubin 0.2 mg/dL (0.2-1.0) 02/17/21 05:03 AST 22 U/L (15-37) 02/17/21 05:03 ALT 30 U/L (12-78) 02/17/21 05:03 Alkaline Phosphatase 53 U/L (45-117) 02/17/21 05:03 Lipase 72 U/L (73-393) L 02/15/21 10:35 Home Medications: Escitalopram Oxalate [Lexapro] 20 mg PO DAILY 02/15/21 Lactobacillus Acidophilus [Acidophilus Lactobacilli] 1 each PO TID #90 capsule 02/17/21 levoFLOXacin [Levaquin] 500 mg PO DAILY #14 tab 02/17/21 metroNIDAZOLE [Flagyl] 500 mg PO Q8H #42 tablet 02/17/21 New Medications: Lactobacillus Acidophilus [Acidophilus Lactobacilli] 1 each PO TID #90 capsule metroNIDAZOLE [Flagyl] 500 mg PO Q8H #42 tablet levoFLOXacin [Levaquin] 500 mg PO DAILY #14 tab Physician Discharge Instructions: Patient presented with abdominal pain. CT scan revealed complex structure to the right ovary. Repeat CT scan favored pelvic inflammatory process. Patient was seen and evaluated by gynecology along with surgery. Surgical intervention was ruled out. No evidence of appendicitis. Colon and small bowel circumferential wall thickening noted likely from inflammatory pelvic process. Patient received IV antibiotic therapy with improvement. At discharge she is without significant abdominal pain, nausea and vomiting. Patient without history of STD in the past. Urine culture shows mixed juliet. GC chlamydia pending at discharge. Case discussed in length with gynecologyDr. Duran. Prior to discharge Rocephin 1 g IV and Zithromax 1 g p.o. given. At discharge the patient will continue with Levaquin 500 mg daily and Flagyl 500 mg 3 times a day for 14 days. At discharge will recommend to continue probiotic 1 pill 3 times a day. Education on pelvic inflammatory disease provided. Patient will follow up with gynecology this week either or Wednesday. Gynecology will follow up on GC chlamydia results. Patient will be further evaluated at that time. Patient with underlying depression with anxiety. At discharge she will continue with her medication Lexapro 20 mg daily. Diet: AHA Activity: Ad coleman Followup: Unknown,U [Primary Care Provider] - Time spent managing pt's care (in minutes): 55
[2021-02-17 10:05] VITALS: BP 86/51; TEMP 97.2
[2021-02-17] MEDS ORDERED: CEFTRIAXONE 1 GM/NS 50 ML 1 GM/50 ML BAG IV ONE (10:37)
[2021-02-17] MEDS ORDERED: AZITHROMYCIN 250 MG TAB PO SCH (11:00)
[2021-02-17] MEDS: ONDANSETRON 4 MG/2 ML VIAL IV PRN (11:35)
[2021-02-19 05:53] LABS: C.trachomatis RNA,TMA Detected (Not Detected)
== END 2021-02-17 12:10 | disposition home or self-care (01) | DRG 758 ==
LOC: ER 10:03 → ERHOLD 16:20 → 2ND 20:20
PROVIDERS: ADMIT Hospitalist; ATTEND Hospitalist
DX: N73.0 Acute parametritis and pelvic cellulitis (principal); N39.0 Urinary tract infection, site not specified; F41.8 Other specified anxiety disorders; Z20.822 Contact with and (suspected) exposure to COVID-19
CPT/HCPCS: 36415; 74177; 76856; 80048; 80053; 80076; 81003; 81015; 81025; 82565; 83690; 85025; 87086; 87088; 87210; 87490; 87590; 87804; 96365; 99285; J0696; J2270; J2405; J2543; J7030; Q9967; U0003

== ENCOUNTER → 2023-05-30 | Emergency (ER) | payer OTHER, SELFPAY ==
[~2023-05-30] MED LIST: DIAZEPAM 2 MG TABLET ONE; NA CHLORIDE 0.9% 1,000 ML ONE
[2023-05-30 08:47] LABS: Absolute Lymphocytes (CBC) 2.8 K/uL (0.7-4.9); Hematocrit 39.6 % (36.0-45.0); Lymphocytes % 21.6 % (15.3-44.8); MCV 93.8 fL (80-100); MPV 8.4 fL (7.6-11.3); Platelets 308 thou/uL (152-406); RBC Red Blood Cell Count 4.22 M/uL (3.86-4.86)
[2023-05-30 08:53] LABS: Specific Gravity 1.016 (1.005-1.030)
[2023-05-30 09:03] LABS: Potassium 3.7 mEq/L (3.5-5.1); Troponin High Sensitivity 4.2 pg/mL (<58.9)
--- NOTE | 2023-05-30 10:27 | EDPHYS ---
Physician Documentation [facility] Name: Dai Tilley Age: 23 yrs Sex: Female : 2000 Arrival Date: 05/30/2023 Time: 07:50 Bed 13 Private MD: ED Physician Seun Lowe HPI: 05/30 10:18 This 23 yrs old Female presents to ER via Ambulatory with complaints of Palpitations, rn Anxiety, Dizziness, Headache. 10:18 The patient presents with a history of heart racing. Context: The symptoms occur at rn rest. Onset: The symptoms/episode began/occurred this morning. Modifying factors: The symptoms are aggravated by anxiety, The symptoms are alleviated by nothing. Severity of symptoms: At their worst the symptoms were moderate in the emergency department the symptoms are unchanged. The patient has not experienced similar symptoms in the past. The patient has not recently seen a physician. Patient reports feels heart racing and palpitations that began this morning. Patient admits to snorting cocaine last night, in addition to alcoholic drinks. Patient reports heart racing. Patient also reports feelings of anxiety. No fever. No chest pain. No syncope.. Historical: - Allergies: 08:15 No Known Allergies; hb - Home Meds: 08:15 Lexapro Oral [Active]; hb - PMHx: 08:15 depressive disorder; hb - PSHx: 08:15 ear tubes; Tonsillectomy; hb - Immunization history:: Adult Immunizations up to date, Client reports having NOT received the Covid vaccine. Flu vaccine is not up to date. - Social history:: Smoking status: Patient denies any tobacco usage or history of. - Family history:: not pertinent. - Hospitalizations: : No recent hospitalization is reported. ROS: 10:18 Constitutional: Negative for fever, chills, and weight loss, Cardiovascular: Positive rn for palpitations and heart racing Respiratory: Negative for shortness of breath, cough, wheezing, and pleuritic chest pain, Abdomen/GI: Negative for abdominal pain, nausea, vomiting, diarrhea, and constipation, MS/Extremity: Negative for injury and deformity, Skin: Negative for injury, rash, and discoloration, Neuro: Negative for headache, numbness, tingling, and seizure Exam: 09:16 ECG was reviewed by the Attending Physician. rn 10:18 Constitutional: This is a well developed, well nourished patient who is awake, alert, rn and in no acute distress. Head/Face: Normocephalic, atraumatic. Cardiovascular: Tachycardic, regular. Respiratory: No increased work of breathing, no retractions or nasal flaring. Skin: Warm, dry MS/ Extremity: Pulses equal, no cyanosis. Neuro: Awake and alert, GCS 15 Vital Signs: 08:11 BP 115 / 95; Pulse 125; Resp 17; Temp 98.9; Pulse Ox 99% on R/A; Weight 58.97 kg; hb Height 5 ft. 2 in. ; Pain 0/10; 08:55 BP 106 / 78; Pulse 101; Resp 16; Pulse Ox 98% ; ko1 10:42 BP 108 / 74; Pulse 90; Resp 16; Pulse Ox 98% ; ko1 08:11 Body Mass Index 23.78 (58.97 kg, 157.48 cm) hb 08:11 Pain Scale: Adult hb MDM: 07:55 Patient medically screened. rn 10:18 Data reviewed: vital signs, nurses notes, lab test result(s), EKG, radiologic studies, rn plain films, and as a result, I will discharge patient. Counseling: I had a detailed discussion with the patient and/or guardian regarding the historical points, exam findings, and any diagnostic results supporting the discharge/admit diagnosis, lab results, radiology results, the need for outpatient follow up, to return to the emergency department if symptoms worsen or persist or if there are any questions or concerns that arise at home. Special discussion: I discussed with the patient/guardian in detail that at this point there is no indication for admission to the hospital. It is understood, however, that if the symptoms persist or worsen the patient needs to return immediately for re-evaluation. 05/30 08:14 Order name: Basic Metabolic Panel; Complete Time: 09: rn 05/30 08:14 Order name: CBC with Diff; Complete Time: : rn 05/30 08:14 Order name: NT PRO-BNP; Complete Time: 09: rn 05/30 08:14 Order name: Troponin HS; Complete Time: 09: rn 05/30 08:14 Order name: Test, Urine; Complete Time: 09: rn 05/30 08:14 Order name: XRAY Chest (1 view); Complete Time: 10:45 rn 05/30 08:14 Order name: EKG; Complete Time: 08: rn 05/30 08:14 Order name: Cardiac monitoring; Complete Time: rn 05/30 08:14 Order name: EKG - Nurse/Tech; Complete Time: rn 05/30 08:14 Order name: IV Saline Lock; Complete Time: : rn 05/30 08:14 Order name: Labs collected and sent; Complete Time: rn 05/30 08:14 Order name: O2 Per Protocol; Complete Time: rn 05/30 08:14 Order name: O2 Sat Monitoring; Complete Time: rn EC:16 Rate is 112 beats/min. Rhythm is regular. QRS [place] is Normal. OR interval is normal. rn QRS interval is normal. QT interval is normal. No Q waves. T waves are Normal. No ST changes noted. Clinical impression: Sinus tachycardia. Interpreted by me. Reviewed by me. Administered Medications: 08:47 Drug: NS 0.9% IV 1000 ml IV at 1000 ml once Route: IV; Rate: 1000 ml; Site: right ko1 antecubital; 10:51 Follow up: Response: No adverse reaction; IV Status: Completed infusion; IV Intake: ko1 1000ml 09:01 Drug: Diazepam PO 2 mg PO once Route: PO; ko1 10:51 Follow up: Response: No adverse reaction; Anxiety decreased ko1 Disposition Summary: 05/30/23 10:26 Discharge Ordered Notes: Location: Home rn Problem: new rn Symptoms: have improved rn Condition: Stable rn Diagnosis - Palpitations rn Followup: rn - With: Private Physician - When: As needed - Reason: Recheck today's complaints, Re-evaluation by your physician Discharge Instructions: - Discharge Summary Sheet rn - Palpitations rn Forms: - Medication Reconciliation Form rn - Thank You Letter rn - Antibiotic internal medicine nurse - Prescription Opioid Use rn - Patient Portal Instructions rn - Leadership Thank You Letter rn - Work release form eb Signatures: Dispatcher [employer] Seun Mandujano MD MD rn Baxter, Heather, RN RN hb Oliver, Kathy, RN RN ko1
--- NOTE | 2023-05-30 10:27 | ER ---
Nurse's Notes [facility] Name: Dai Tilley Age: 23 yrs Sex: Female : 2000 Arrival Date: 05/30/2023 Time: 07:50 Bed 13 Private MD: Diagnosis: Palpitations Presentation: 05/30 08:11 Chief complaint: Patient states: "I did a lot of coke last night and now I feel weird, hb like right before you pass out, I am kind of dizzy and sometimes there's spots in my vision and I am really anxious and tingly all over." Reports snorting cocaine until approx 3 am and having one or 2 mixed drinks earlier last night. Denies other drug use/chest pain/SOB. Coronavirus screen: At this time, the client does not indicate any symptoms associated with coronavirus-19. Ebola Screen: No symptoms or risks identified at this time. Initial Sepsis Screen: Does the patient meet any 2 criteria? HR > 90 bpm. No. Patient's initial sepsis screen is negative. Does the patient have a suspected source of infection? No. Patient's initial sepsis screen is negative. Risk Assessment: Do you want to hurt yourself or someone else? Patient reports no desire to harm self or others. Onset of symptoms was May 30, 2023. 08:11 Method Of Arrival: Ambulatory hb 08:11 Acuity: CHRISTY 3 hb Historical: - Allergies: 08:15 No Known Allergies; hb - Home Meds: 08:15 Lexapro Oral [Active]; hb - PMHx: 08:15 depressive disorder; hb - PSHx: 08:15 ear tubes; Tonsillectomy; hb - Immunization history:: Adult Immunizations up to date, Client reports having NOT received the Covid vaccine. Flu vaccine is not up to date. - Social history:: Smoking status: Patient denies any tobacco usage or history of. - Family history:: not pertinent. - Hospitalizations: : No recent hospitalization is reported. Screenin:55 [facility] ED Fall Risk Assessment (Adult) History of falling in the last 3 months, ko1 including since admission No falls in past 3 months (0 pts) Confusion or Disorientation No (0 pts) Intoxicated or Sedated No (0 pts) Impaired Gait No (0 pts) Mobility Assist Device Used No (0 pt) Altered Elimination No (0 pt) Score/Fall Risk Level 0 - 2 = Low Risk Oriented to surroundings, Maintained a safe environment, Educated pt \\T\\ family on fall prevention, incl call for assistance when getting out of bed, Assessed \\T\\ reinforced patient's understanding of fall precautions, Provided non-skid footwear, Hourly rounding (assess needs \\T\\ fall precautionary measures) done, Used ambulatory aids as needed (educated on \\T\\ assisted with), Used gait belt as appropriate. Abuse screen: Denies threats or abuse. Denies injuries from another. Nutritional screening: No deficits noted. Tuberculosis screening: No symptoms or risk factors identified. Assessment: 08:55 General: Appears comfortable, Behavior is cooperative, appropriate for age, anxious. ko1 Pain: Complains of pain in headache. Neuro: Reports dizziness, headache. Cardiovascular: Reports palpitations. Vital Signs: 08:11 BP 115 / 95; Pulse 125; Resp 17; Temp 98.9; Pulse Ox 99% on R/A; Weight 58.97 kg; hb Height 5 ft. 2 in. ; Pain 0/10; 08:55 BP 106 / 78; Pulse 101; Resp 16; Pulse Ox 98% ; ko1 10:42 BP 108 / 74; Pulse 90; Resp 16; Pulse Ox 98% ; ko1 08:11 Body Mass Index 23.78 (58.97 kg, 157.48 cm) hb 08:11 Pain Scale: Adult hb ED Course: 07:54 Patient arrived in ED. mg5 07:55 Seun Lowe MD is Attending Physician. rn 08:15 Triage completed. hb 08:16 Arm band placed on. hb 08:32 Kathy Marroquin, RN is Primary Nurse. ko1 08:40 Basic Metabolic Panel Sent. hb 08:40 CBC with Diff Sent. hb 08:40 Troponin HS Sent. hb 08:40 NT PRO-BNP Sent. hb 08:40 Inserted saline lock: 20 gauge in right antecubital area, using aseptic technique. hb Blood collected. 08:47 Test, Urine Sent. ko1 08:55 Patient has correct armband on for positive identification. Bed in low position. Call ko1 light in reach. Side rails up X 1. Client placed on continuous cardiac and pulse oximetry monitoring. NIBP monitoring applied. bus driver/monitor on. Door closed. Noise minimized. Lights dimmed. Warm blanket given. 10:05 XRAY Chest (1 view) In Process Unspecified. EDMS 10:42 Provided Education on: na. ko1 10:42 No provider procedures requiring assistance completed. IV discontinued, intact, ko1 bleeding controlled, No redness/swelling at site. Pressure dressing applied. Administered Medications: 08:47 Drug: NS 0.9% IV 1000 ml IV at 1000 ml once Route: IV; Rate: 1000 ml; Site: right ko1 antecubital; 10:51 Follow up: Response: No adverse reaction; IV Status: Completed infusion; IV Intake: ko1 1000ml 09:01 Drug: Diazepam PO 2 mg PO once Route: PO; ko1 10:51 Follow up: Response: No adverse reaction; Anxiety decreased ko1 Medication: 08:55 VIS not applicable for this client. ko1 Intake: 10:51 IV: 1000ml; Total: 1000ml. ko1 Outcome: 10:26 Discharge ordered by . rn 10:42 Discharged to home ambulatory, ko1 10:42 Condition: stable 10:42 Discharge instructions given to patient, Instructed on discharge instructions, follow up and referral plans. Demonstrated understanding of instructions, follow-up care, 11:03 Patient left the ED. ko1 Signatures: Dispatcher [employer] EDMS Seun Lowe MD MD rn Baxter, Heather RN Kathy Thompson RN RN ko1 Dai Holman mg5
--- NOTE | 2023-05-30 10:39 | RAD REPORT ---
EXAM DESCRIPTION: RAD - Chest Single View - 05/30/2023 10:04 am CLINICAL HISTORY: PALPITATIONS COMPARISON: No comparisonsChest Pa And Lat (2 Views) dated 2CHEST PA AND LAT 2 VIEW dated ; CHEST PA AND LAT 2 VIEW dated 01/12/2008; CHEST PA AND LAT 2 VIEW dated 07/28/2007 FINDINGS: Lines: None. Lungs: No evidence of edema or pneumonia. Pleural: No significant pleural effusions or pneumothorax. Cardiac: The heart size is within normal limits. Mediastinum: Within normal limits. Bones: No acute fractures. Other: None IMPRESSION: No acute cardiopulmonary disease.
[2023-05-30 11:36] VITALS: BP 108/74; TEMP 98.9; O2SAT 98
--- NOTE | 2023-05-31 16:54 | EKG ---
Test Date: 2023-05-30 Test Time: 08:30:54 Machinist Instructor: HB MEASUREMENT RESULTS: Intervals: Rate: 112 DC: 136 QRSD: 88 QT: 344 QTc: 469 [place]: P: 74 DC: 136 QRS: 35 T: 39 INTERPRETIVE STATEMENTS: Sinus tachycardia Otherwise normal ECG Compared to ECG 05/22/2014 10:21:14 Sinus rhythm no longer present Ventricular premature complex(es) no longer present Electronically Signed On 05-31-23 16:51:42 FILM RECORDIST by Hayes Eldridge
== END ==
LOC: ER 07:50
DX: R00.2 Palpitations (principal)
CPT/HCPCS: 36415; 71045; 80048; 81025; 83880; 84484; 85025; 93005; 96360; 96361; 99285; J7030